=== PATIENT | female | born 1985 | race Caucasian/White ===

== ENCOUNTER 2019-09-19 10:57 | Outpatient (CLI) | payer BC, SELFPAY ==
--- NOTE | 2019-09-19 11:30 | NEURO_ITS ---
TEST: ELECTROENCEPHALOGRAM DIAGNOSIS: SEIZURE DISORDER PATIENT NUMBER: [id number] EEG NUMBER: [id number] RECORDING DATE: 09/19/19 CLINICAL HISTORY: Patient reports she is having episodes of her right arm shaking and then becomes paralyzed from the neck down for upto 5 minutes. CONDITION OF RECORDING: Awake, drowsy and sleep EEG DESCRIPTION: Basic resting occipital frequency consists of moderate amount of fairly well organized low voltage 8-10hz alpha mixed with low voltage 15-18hz beta. During drowsiness low voltage beta activity is seen diffusely mixed with waxing and waning posterior alpha rhythms. Bilateral symmetrical sleep activity is seen during sleep. Photic stimulation produced normal drive. Hyperventilation produced normal and symmetrical build-up. Nonparoxysmal. Nonfocal. Nonlateralizing. IMPRESSION: No significant abnormalities noted. MTDD
== END 2019-09-19 10:58 | disposition home or self-care (01) ==
PROVIDERS: PCP Internal Medicine; Visit Provider Internal Medicine
DX: G40.909 Epilepsy, unspecified, not intractable, without status epilepticus (principal)
CPT/HCPCS: 95816